=== PATIENT | male | born 1960 | race Caucasian/White ===

== ENCOUNTER 2017-02-03 12:06 | Inpatient (IN) | payer OTHER ==
[~2017-02-03] VITALS: Ht 182.8 cm; Wt 71.8 kg
[~2017-02-03 12:06] MED LIST: ATARAX,VISTARIL50 MG PO; LISINOPRIL5 MG PO; METHOCARBAMOL750 M1 PO; NATURE'S BLEND F1 MG PO; NICODERM C21 MG/24 H TD; THERA TABS1 TAB PO; VITAMIN B-11 TAB PO
[2017-02-03 12:24] LABS: BASO % 0.7 % (0.0-1.0); EOS % 0.4 % (1.0-4.0); HEMATOCRIT 42.2 % (42.0-52.0); HEMOGLOBIN 15.1 g/dl (14.0-18.0); LYMPH # 1.6 10*3/uL (1.3-4.4); LYMPH % 28.4 % (27.0-41.0); MEAN CELL VOLUME 96.3 fl (80.0-94.0); MEAN CORPUSCULAR HGB 34.5 pg (27.0-31.0); MEAN CORPUSCULAR HGB CONC 35.8 g/dl (33.0-37.0); MEAN PLATELET VOLUME 10.1 fl (9.6-12.3); MONO # 0.8 10*3/uL (0.1-1.0); MONO % 13.6 % (3.0-9.0); NEUT # 3.1 10*3/uL (2.3-7.9); NEUT % 56.7 % (47.0-73.0); PLATELET COUNT AUTOMATED 110 10*3/uL (130-400); RED BLOOD COUNT 4.38 10*6/uL (4.50-5.90); RED CELL DISTRI WIDTH 11.2 % (0-14.5); WHITE BLOOD COUNT 5.5 10*3/uL (4.8-10.8)
[2017-02-03 12:31] VITALS: BP 162/95
[2017-02-03 12:33] LABS: INTERNATIONAL NORM RATIO 0.9 (2.0-3.5); PROTHROMBIN TIME 9.3 SECONDS (9.0-12.4)
[2017-02-03 12:42] LABS: ALBUMIN 3.6 gm/dl (3.1-4.5); ALKALINE PHOSPHATASE 123 U/L (45-117); BILIRUBIN, TOTAL 0.6 mg/dl (0.2-1.0); BUN 4 mg/dl (7-24); CARBON DIOXIDE 26 mmol/L (21-32); CHLORIDE 102 mmol/L (98-107); EST GLOM FILT AFRICAN AMERICAN > 60 ml/min; GLUCOSE 113 mg/dL (65-99); MAGNESIUM 2.1 mg/dL (1.5-2.1); POTASSIUM 4.4 mmol/L (3.5-5.1); SGOT/AST 235 IU/L (3-35); SGPT/ALT 172 U/L (12-78); SODIUM 139 mmol/L (136-145); TOTAL PROTEIN 7.1 gm/dL (6.4-8.2)
[2017-02-03 12:48] LABS: TROPONIN I < 0.015 ng/ml (<0.045)
[2017-02-03 13:31] VITALS: BP 114/67
[2017-02-03 14:15] VITALS: BP 126/80
[2017-02-03] MEDS ORDERED: DILTIAZEM 24HR120 MG PO ×2 (14:28→14:51)
[2017-02-03] MEDS ORDERED: REMERON15 M2 PO ×2 (14:30→14:47)
[2017-02-03] MEDS ORDERED: VISTARIL50 MG PO (14:49)
[2017-02-03] MEDS ORDERED: ATROVENT H0.017 MG/A INH (14:51)
[2017-02-03 16:00] VITALS: BP 124/85
[2017-02-03 16:19] LABS: URINE AMPHETAMINES < 1000 (1000ng/ml); URINE BARBITURATES < 200 (200ng/ml); URINE COCAINE < 300 (300ng/ml)
[2017-02-03 16:40] LABS: BILIRUBIN NEGATIVE (NEGATIVE); BLOOD TRACE-LYSED (NEGATIVE); CLARITY CLEAR (CLEAR); COLOR YELLOW (YELLOW); GLUCOSE NEGATIVE (NEGATIVE); KETONE NEGATIVE (NEGATIVE); LEUKO ESTERASE NEGATIVE (NEGATIVE); NITRITE NEGATIVE (NEGATIVE); PROTEIN NEGATIVE (NEGATIVE); SPECIFIC GRAVITY <= 1.005 (1.005-1.030); UROBILINOGEN 0.2 E.U./dl (0.2-1.0)
[2017-02-03 16:52] LABS: BACTERIA 1+; EPITHELIAL CELLS 0-3; RBC 0-2 rbc/hpf (0-2); URINE REFLEX COMMENT NO (NO)
[2017-02-03 20:00] VITALS: BP 119/74
[2017-02-04] VITALS: BP 128/85
[2017-02-04 04:00] VITALS: BP 140/73
[2017-02-04 05:35] LABS: ALKALINE PHOSPHATASE 118 U/L (45-117); BILIRUBIN, TOTAL 1.1 mg/dl (0.2-1.0); BUN 6 mg/dl (7-24); CARBON DIOXIDE 28 mmol/L (21-32); CHLORIDE 106 mmol/L (98-107); CHOLESTEROL 182 mg/dL (<200); EST GLOM FILT AFRICAN AMERICAN > 60 ml/min; FREE T4 0.78 ng/dl (0.76-1.46); GLUCOSE 87 mg/dL (65-99); HDL CHOLESTEROL 120 mg/dl (40-60); LDL CHOLESTEROL 54 mg/dL (9-159); MAGNESIUM 1.7 mg/dL (1.5-2.1); PHOSPHOROUS 3.1 mg/dL (2.5-4.9); POTASSIUM 4.1 mmol/L (3.5-5.1); SGOT/AST 163 IU/L (3-35); SGPT/ALT 144 U/L (12-78); SODIUM 142 mmol/L (136-145); TOTAL PROTEIN 5.8 gm/dL (6.4-8.2); TRIGLYCERIDES 38 mg/dl (<150); VLDL CHOLESTEROL 8 mg/dL (6-40)
[2017-02-04 06:02] LABS: BASO % 0.5 % (0.0-1.0); EOS # 0.1 10*3/uL (0.0-0.4); EOS % 1.3 % (1.0-4.0); HEMATOCRIT 39.2 % (42.0-52.0); HEMOGLOBIN 13.4 g/dl (14.0-18.0); LYMPH # 1.2 10*3/uL (1.3-4.4); LYMPH % 20.8 % (27.0-41.0); MEAN CELL VOLUME 98.7 fl (80.0-94.0); MEAN CORPUSCULAR HGB 33.8 pg (27.0-31.0); MEAN CORPUSCULAR HGB CONC 34.2 g/dl (33.0-37.0); MEAN PLATELET VOLUME 11.2 fl (9.6-12.3); MONO # 0.6 10*3/uL (0.1-1.0); MONO % 9.7 % (3.0-9.0); NEUT % 67.4 % (47.0-73.0); PLATELET COUNT AUTOMATED 93 10*3/uL (130-400); RED BLOOD COUNT 3.97 10*6/uL (4.50-5.90); RED CELL DISTRI WIDTH 11.5 % (0-14.5)
[2017-02-04 06:24] LABS: INTERNATIONAL NORM RATIO 0.9 (2.0-3.5); PROTHROMBIN TIME 9.7 SECONDS (9.0-12.4)
[2017-02-04 06:58] LABS: HEMOGLOBIN A1c 5.1 % (4.8-5.6)
[2017-02-04 07:09] LABS: VITAMIN D, 25-HYDROXY 17.8 ng/mL (30-100)
[2017-02-04 07:10] LABS: FOLIC ACID 20.8 ng/mL (>5.38)
[2017-02-04 08:00] VITALS: BP 144/80
[2017-02-04 12:00] VITALS: BP 132/68
[2017-02-04 16:00] VITALS: BP 118/67
[2017-02-04 20:00] VITALS: BP 111/67
[2017-02-05] VITALS: BP 113/79
[2017-02-05 04:00] VITALS: BP 114/77
[2017-02-05 05:48] LABS: BASO % 0.6 % (0.0-1.0); EOS # 0.2 10*3/uL (0.0-0.4); EOS % 2.6 % (1.0-4.0); HEMATOCRIT 37.4 % (42.0-52.0); LYMPH # 1.8 10*3/uL (1.3-4.4); LYMPH % 27.4 % (27.0-41.0); MEAN CELL VOLUME 98.4 fl (80.0-94.0); MEAN CORPUSCULAR HGB 34.2 pg (27.0-31.0); MEAN CORPUSCULAR HGB CONC 34.8 g/dl (33.0-37.0); MEAN PLATELET VOLUME 11.5 fl (9.6-12.3); MONO # 0.8 10*3/uL (0.1-1.0); MONO % 12.2 % (3.0-9.0); NEUT # 3.7 10*3/uL (2.3-7.9); NEUT % 56.9 % (47.0-73.0); PLATELET COUNT AUTOMATED 78 10*3/uL (130-400); RED CELL DISTRI WIDTH 11.2 % (0-14.5); WHITE BLOOD COUNT 6.5 10*3/uL (4.8-10.8)
[2017-02-05 06:01] LABS: ALBUMIN 2.8 gm/dl (3.1-4.5); ALKALINE PHOSPHATASE 113 U/L (45-117); BILIRUBIN, TOTAL 1.2 mg/dl (0.2-1.0); BUN 7 mg/dl (7-24); CARBON DIOXIDE 28 mmol/L (21-32); CHLORIDE 104 mmol/L (98-107); EST GLOM FILT AFRICAN AMERICAN > 60 ml/min; GLUCOSE 91 mg/dL (65-99); POTASSIUM 3.6 mmol/L (3.5-5.1); SGOT/AST 80 IU/L (3-35); SGPT/ALT 99 U/L (12-78); SODIUM 140 mmol/L (136-145); TOTAL PROTEIN 5.6 gm/dL (6.4-8.2)
[2017-02-05 08:00] VITALS: BP 111/81
[2017-02-05 12:00] VITALS: BP 120/86
[2017-02-05 16:00] VITALS: BP 108/56
[2017-02-05 20:00] VITALS: BP 99/53
[2017-02-06] VITALS: BP 116/83
[2017-02-06 04:00] VITALS: BP 125/76
[2017-02-06 06:00] LABS: BASO % 0.3 % (0.0-1.0); EOS # 0.2 10*3/uL (0.0-0.4); EOS % 2.6 % (1.0-4.0); HEMATOCRIT 37.5 % (42.0-52.0); HEMOGLOBIN 12.9 g/dl (14.0-18.0); LYMPH # 1.8 10*3/uL (1.3-4.4); LYMPH % 29.8 % (27.0-41.0); MEAN CELL VOLUME 99.2 fl (80.0-94.0); MEAN CORPUSCULAR HGB 34.1 pg (27.0-31.0); MEAN CORPUSCULAR HGB CONC 34.4 g/dl (33.0-37.0); MEAN PLATELET VOLUME 11.8 fl (9.6-12.3); MONO # 0.8 10*3/uL (0.1-1.0); MONO % 13.6 % (3.0-9.0); NEUT # 3.3 10*3/uL (2.3-7.9); NEUT % 53.2 % (47.0-73.0); PLATELET COUNT AUTOMATED 85 10*3/uL (130-400); RED BLOOD COUNT 3.78 10*6/uL (4.50-5.90); RED CELL DISTRI WIDTH 11.2 % (0-14.5); WHITE BLOOD COUNT 6.2 10*3/uL (4.8-10.8)
[2017-02-06 06:27] LABS: ALBUMIN 2.9 gm/dl (3.1-4.5); BILIRUBIN, TOTAL 0.8 mg/dl (0.2-1.0); BUN 6 mg/dl (7-24); CARBON DIOXIDE 28 mmol/L (21-32); CHLORIDE 107 mmol/L (98-107); EST GLOM FILT AFRICAN AMERICAN > 60 ml/min; GLUCOSE 95 mg/dL (65-99); POTASSIUM 3.8 mmol/L (3.5-5.1); SGOT/AST 48 IU/L (3-35); SGPT/ALT 82 U/L (12-78); SODIUM 143 mmol/L (136-145); TOTAL PROTEIN 5.7 gm/dL (6.4-8.2)
[2017-02-06 06:28] LABS: ALKALINE PHOSPHATASE 106 U/L (45-117)
[2017-02-06 08:00] VITALS: BP 135/82
[2017-02-06 12:00] VITALS: BP 136/80
[2017-02-06 16:00] VITALS: BP 130/84
[2017-02-06 20:00] VITALS: BP 113/73
[2017-02-07] VITALS: BP 102/59
[2017-02-07 06:13] LABS: BASO % 0.4 % (0.0-1.0); EOS # 0.1 10*3/uL (0.0-0.4); EOS % 1.8 % (1.0-4.0); HEMATOCRIT 36.9 % (42.0-52.0); HEMOGLOBIN 12.5 g/dl (14.0-18.0); IG # 0.1 10*3/uL (0.0-0.1); LYMPH % 26.5 % (27.0-41.0); MEAN CELL VOLUME 99.7 fl (80.0-94.0); MEAN CORPUSCULAR HGB 33.8 pg (27.0-31.0); MEAN CORPUSCULAR HGB CONC 33.9 g/dl (33.0-37.0); MEAN PLATELET VOLUME 12.2 fl (9.6-12.3); MONO # 0.9 10*3/uL (0.1-1.0); MONO % 11.4 % (3.0-9.0); NEUT # 4.5 10*3/uL (2.3-7.9); NEUT % 59.2 % (47.0-73.0); PLATELET COUNT AUTOMATED 97 10*3/uL (130-400); RED CELL DISTRI WIDTH 11.3 % (0-14.5); WHITE BLOOD COUNT 7.6 10*3/uL (4.8-10.8)
[2017-02-07 06:42] LABS: ALBUMIN 2.6 gm/dl (3.1-4.5); ALKALINE PHOSPHATASE 113 U/L (45-117); BILIRUBIN, TOTAL 0.4 mg/dl (0.2-1.0); BUN 7 mg/dl (7-24); CARBON DIOXIDE 28 mmol/L (21-32); CHLORIDE 108 mmol/L (98-107); EST GLOM FILT AFRICAN AMERICAN > 60 ml/min; GLUCOSE 147 mg/dL (65-99); POTASSIUM 3.8 mmol/L (3.5-5.1); SGOT/AST 39 IU/L (3-35); SGPT/ALT 66 U/L (12-78); SODIUM 143 mmol/L (136-145); TOTAL PROTEIN 5.3 gm/dL (6.4-8.2)
[2017-02-07 08:00] VITALS: BP 114/60
[2017-02-07 12:00] VITALS: BP 128/96
[2017-02-07 16:00] VITALS: BP 115/72
[2017-02-07 20:00] VITALS: BP 126/83
[2017-02-08] VITALS: BP 126/73
[2017-02-08 08:00] VITALS: BP 132/80
[2017-02-08 12:00] VITALS: BP 136/72
[2017-02-08 16:00] VITALS: BP 114/81
[2017-02-08 20:00] VITALS: BP 120/72
[2017-02-09] VITALS: BP 128/79
[2017-02-09 08:00] VITALS: BP 122/76
[2017-02-09 12:00] VITALS: BP 120/67
[2017-02-09] MEDS ORDERED: LOPRESSOR25 MG PO (13:07)
[2017-02-09] MEDS ORDERED: LEXAPRO10 MG PO (13:07)
[2017-02-09] MEDS ORDERED: Mysoline50 MG PO (13:07)
[2017-02-09] MEDS ORDERED: LISINOPRIL5 MG PO (13:07)
[2017-02-09] MEDS ORDERED: D-1000 185 MG-11 TAB PO (13:07)
== END 2017-02-09 14:02 | disposition home or self-care (01) | DRG 896 ==
LOC: ED 12:06 → EDHOLD 13:24 → ICCU 13:24 → 4E 02-06 12:31
PROVIDERS: Internal Medicine; Internal Medicine Nephrology; Nurse Practitioner Family
DX: F10.239 Alcohol dependence with withdrawal, unspecified (principal); J18.9 Pneumonia, unspecified organism; F10.29 Alcohol dependence with unspecified alcohol-induced disorder; E44.0 Moderate protein-calorie malnutrition; D69.6 Thrombocytopenia, unspecified; R07.9 Chest pain, unspecified; F41.9 Anxiety disorder, unspecified; E78.5 Hyperlipidemia, unspecified; F10.229 Alcohol dependence with intoxication, unspecified; Y90.0 Blood alcohol level of less than 20 mg/100 ml; R74.0 Nonspecific elevation of levels of transaminase and lactic acid dehydrogenase [LDH]; I10 Essential (primary) hypertension; F17.200 Nicotine dependence, unspecified, uncomplicated; G25.0 Essential tremor; E55.9 Vitamin D deficiency, unspecified; F32.9 Major depressive disorder, single episode, unspecified; D53.9 Nutritional anemia, unspecified; Z79.899 Other long term (current) drug therapy; Z80.0 Family history of malignant neoplasm of digestive organs; Z71.6 Tobacco abuse counseling; Z68.21 Body mass index [BMI] 21.0-21.9, adult

== ENCOUNTER 2017-05-02 12:07 | Inpatient (IN) | payer OTHER ==
[~2017-05-02] VITALS: Ht 182.8 cm; Wt 67.3 kg
[~2017-05-02 12:07] MED LIST changes: +ATROVENT H0.017 MG/A INH; +D-1000 185 MG-11 TAB PO; +DILTIAZEM 24HR120 MG PO; +LEXAPRO10 MG PO; +LOPRESSOR25 MG PO; +Mysoline50 MG PO; +REMERON15 M2 PO; +VISTARIL50 MG PO
[2017-05-02 12:26] VITALS: BP 145/85
[2017-05-02 13:53] LABS: BASO # 0.1 10*3/uL (0.0-0.1); BASO % 0.9 % (0.0-1.0); EOS % 0.2 % (1.0-4.0); HEMOGLOBIN 15.6 g/dl (14.0-18.0); LYMPH # 1.5 10*3/uL (1.3-4.4); LYMPH % 26.4 % (27.0-41.0); MEAN CELL VOLUME 96.5 fl (80.0-94.0); MEAN CORPUSCULAR HGB 34.2 pg (27.0-31.0); MEAN CORPUSCULAR HGB CONC 35.5 g/dl (33.0-37.0); MEAN PLATELET VOLUME 9.9 fl (9.6-12.3); MONO # 0.6 10*3/uL (0.1-1.0); MONO % 11.1 % (3.0-9.0); NEUT # 3.5 10*3/uL (2.3-7.9); NEUT % 61.1 % (47.0-73.0); PLATELET COUNT AUTOMATED 133 10*3/uL (130-400); RED BLOOD COUNT 4.56 10*6/uL (4.50-5.90); RED CELL DISTRI WIDTH 11.2 % (0-14.5); WHITE BLOOD COUNT 5.8 10*3/uL (4.8-10.8)
[2017-05-02 14:07] LABS: ALBUMIN 3.6 gm/dl (3.1-4.5); ALKALINE PHOSPHATASE 95 U/L (45-117); BUN 5 mg/dl (7-24); CHLORIDE 102 mmol/L (98-107); MAGNESIUM 2.3 mg/dL (1.5-2.1); POTASSIUM 4.4 mmol/L (3.5-5.1); SGOT/AST 144 IU/L (3-35); SGPT/ALT 146 U/L (12-78); SODIUM 139 mmol/L (136-145); TOTAL PROTEIN 6.9 gm/dL (6.4-8.2)
[2017-05-02 14:09] LABS: BILIRUBIN NEGATIVE (NEGATIVE); BLOOD TRACE-INTACT (NEGATIVE); CLARITY SL CLOUDY (CLEAR); COLOR YELLOW (YELLOW); GLUCOSE NEGATIVE (NEGATIVE); KETONE NEGATIVE (NEGATIVE); LEUKO ESTERASE 3+ (NEGATIVE); NITRITE POSITIVE (NEGATIVE); PH 5.5 (5.0-9.0); UROBILINOGEN 0.2 E.U./dl (0.2-1.0)
--- NOTE | 2017-05-02 14:15 | NUR ---
57 year old MALE admitted to room # 506 for stabilization. Reports an addiction to ALCOHOL last used 10 hours prior to admission. Compliant with admission procedure. Patient denies any anxiety, but is unable to sit still, taps toes to floor continuously, looks about room, unable to focus eyes on nurse during interview. See assessment forms for additional information about patient status.
[2017-05-02 14:16] LABS: URINE AMPHETAMINES < 1000 (1000ng/ml); URINE BARBITURATES < 200 (200ng/ml); URINE BENZODIAZEPINES < 200 (200ng/ml); URINE CANNABINOIDS (THC) > 50 (50ng/ml); URINE COCAINE < 300 (300ng/ml); URINE METHADONE < 300 (300ng/ml); URINE OPIATES < 300 (300ng/ml)
[2017-05-02 14:17] LABS: URINE PHENCYCLIDINE < 25 (25ng/ml)
[2017-05-02 14:30] VITALS: BP 150/60
[2017-05-02 14:47] LABS: RBC 0-2 rbc/hpf (0-2); WBC TNTC wbc/hpf (0-5)
[2017-05-02 14:48] LABS: BACTERIA 4+; MUCOUS TRACE
[2017-05-02 16:00] VITALS: BP 146/78
--- NOTE | 2017-05-02 16:38 | NUR ---
MEDICATED WITH VISTARIL FOR ANXIETY, ROBAXIN FOR LEG CRAMPS AND BENTYL FOR STOMACH CRAMPS.
--- NOTE | 2017-05-02 18:48 | NUR ---
Patient resting. Responding to scheduled medications with fewer complaints of pain and anxiety.
[2017-05-02 20:00] VITALS: BP 131/72
--- NOTE | 2017-05-02 21:56 | NUR ---
PT STILL HAVING MARKEDLY VISIBLE TREMORS DESPITE HAVING PO ATIVAN, MEDICATED WITH IV ATIVAN PER PRN ORDER. WILL MONITOR FOR EFFECTIVENESS.
--- NOTE | 2017-05-02 22:44 | NUR ---
PT RESTING MORE COMFORTABLY, TREMORS HAVE NOTABLY DECREASED. IV ATIVAN EFFECTIVE.
[2017-05-03] VITALS: BP 129/61
[2017-05-03 04:00] VITALS: BP 122/76
--- NOTE | 2017-05-03 05:10 | NUR ---
DR REGAN UPDATED ON PT'S STATUS AND PT'S MARKEDLY VISIBLE TREMORS, PT IS ALERT & ORIENTED, PT IS ONLY ON SCHEDULED ATIVAN PO, NO LIBRIUM TAPER. STATES TO GIVE PT THE IV ATIVAN 2MG NOW AND HE WILL ORDER THE LIBRIUM TAPER.
--- NOTE | 2017-05-03 05:14 | NUR ---
MEDICATED WITH ATIVAN IV PER ORDER FOR SEVERE TREMORS. WILL MONITOR FOR EFFECTIVENESS.
--- NOTE | 2017-05-03 05:49 | NUR ---
SOME NOTED REDUCTION IN TREMORS AT THIS TIME. ATIVAN MILDLY EFFECTIVE. SCHEDULED LIBRIUM GIVEN AT THIS TIME.
[2017-05-03 07:01] LABS: BASO % 0.4 % (0.0-1.0); EOS # 0.1 10*3/uL (0.0-0.4); EOS % 0.7 % (1.0-4.0); HEMATOCRIT 42.1 % (42.0-52.0); LYMPH # 1.4 10*3/uL (1.3-4.4); LYMPH % 18.9 % (27.0-41.0); MEAN CELL VOLUME 97.7 fl (80.0-94.0); MEAN CORPUSCULAR HGB 34.8 pg (27.0-31.0); MEAN CORPUSCULAR HGB CONC 35.6 g/dl (33.0-37.0); MEAN PLATELET VOLUME 10.8 fl (9.6-12.3); MONO # 0.8 10*3/uL (0.1-1.0); MONO % 11.6 % (3.0-9.0); NEUT # 4.9 10*3/uL (2.3-7.9); PLATELET COUNT AUTOMATED 125 10*3/uL (130-400); RED BLOOD COUNT 4.31 10*6/uL (4.50-5.90); RED CELL DISTRI WIDTH 11.2 % (0-14.5); WHITE BLOOD COUNT 7.2 10*3/uL (4.8-10.8)
[2017-05-03 07:32] LABS: ALBUMIN 3.2 gm/dl (3.1-4.5); ALKALINE PHOSPHATASE 98 U/L (45-117); BUN 8 mg/dl (7-24); CHLORIDE 102 mmol/L (98-107); CHOLESTEROL 182 mg/dL (<200); CREATININE 0.63 mg/dL (0.70-1.30); FREE T4 0.91 ng/dl (0.76-1.46); HDL CHOLESTEROL 122 mg/dl (40-60); LDL CHOLESTEROL 50 mg/dL (9-159); MAGNESIUM 1.8 mg/dL (1.5-2.1); POTASSIUM 3.7 mmol/L (3.5-5.1); SGOT/AST 103 IU/L (3-35); SGPT/ALT 115 U/L (12-78); SODIUM 137 mmol/L (136-145); TOTAL PROTEIN 6.3 gm/dL (6.4-8.2); TRIGLYCERIDES 50 mg/dl (<150); VLDL CHOLESTEROL 10 mg/dL (6-40)
[2017-05-03 07:52] LABS: VITAMIN D, 25-HYDROXY 13.5 ng/mL (30-100)
--- NOTE | 2017-05-03 07:58 | NUR ---
Shift chart check completed.
[2017-05-03 08:00] VITALS: BP 136/96
[2017-05-03 12:00] VITALS: BP 126/80
--- NOTE | 2017-05-03 14:23 | NUR ---
PATIENT MEDICATED WITH PO IMMODIUM FOR DIARRHEA
--- NOTE | 2017-05-03 15:23 | NUR ---
PATIENT STATES MEDICATION EFFECTIVE
[2017-05-03 16:00] VITALS: BP 144/80
--- NOTE | 2017-05-03 16:27 | NUR ---
D/C PLANNING: HOTEL BREAKFAST ATTENDANT MADE ATTEMPT TO DISCUSS AFTER CARE PLAN WITH PATIENT WITH NO SUCCESS. PATIENT STATED THAT HE WAS NOT FEELING WELL TO DISCUSS AFTERCARE PLAN. HOTEL BREAKFAST ATTENDANT WILL MAKE ANOTHER ATTEMPT TOMORROW. ALLA VEGA B.A. INTAKE COORINATOR
--- NOTE | 2017-05-03 19:31 | NUR ---
0910 2MG IMODIUM GIVEN FOR DIARHEA. PT STATES HE COMMONLY HAS DIARHEA AFTER MEALS. REASSESSED APPROXIMATELY 0940 STATES HR FEELS BETTER.
[2017-05-03 20:00] VITALS: BP 117/72
--- NOTE | 2017-05-03 20:54 | NUR ---
PATIENT MEDICATED WITH IVP ATIVAN FOR TREMORS AND ANXIETY
--- NOTE | 2017-05-03 22:00 | NUR ---
PATIENT STATES MEDICATION EFFECTIVE
[2017-05-04] VITALS: BP 122/76
[2017-05-04 04:00] VITALS: BP 108/78
[2017-05-04 06:11] LABS: HEPATITIS B SURFACE AG Negative (Negative); HEPATITIS C VIRUS ANTIBODY <0.1 s/co (0.0-0.9)
[2017-05-04 08:00] VITALS: BP 105/61
--- NOTE | 2017-05-04 08:30 | NUR ---
PATIENT RESTING QUIETLY IN BED. ALERT AND ORIENTED X3. FLAT AFFECT. RESPIRATIONS EASY, REGULAR. POX 98% RA. PT DENIES ANY PAIN/DISCOMFORT AT THIS TIME. MILD TREMORS NOTED. PT DENIES THE NEED FOR ANY PRN MEDICATION FOR ANXIETY. WILL CONTINUE TO MONITOR. VSS. CALL LIGHT WITHIN REACH.
[2017-05-04 12:00] VITALS: BP 103/65
--- NOTE | 2017-05-04 14:19 | NUR ---
PATIENT UP AMBULATING IN THE HALLWAY.
--- NOTE | 2017-05-04 15:47 | NUR ---
D/C PLANNING: BONE CHAR OPERATOR [facility] [place] AND SPOKE WITH MACHINERY MOVER, LAWRENCE. SHE STATED THAT THE PATIENT'S PCP PUT IN FOR A CONSULT FOR HIS PATIENT TO GO [facility]. THE [facility] WILL CONTACT [facility] FOR AN UPDATE. ALLA VEGA B.A. BONE CHAR OPERATOR
[2017-05-04 16:00] VITALS: BP 105/61
--- NOTE | 2017-05-04 16:12 | NUR ---
D/C PLANNING: ELECTRICAL INSTRUMENTATION TECHNICIAN RECEIVED A CALL BACK FROM THE [facility] [place]. ELECTRICAL INSTRUMENTATION TECHNICIAN SPOKE WITH THE BACON SLICER, EMMANUELLE AT [phone]. SHE STATED THAT THE PATIENT WILL BE GOING INTO THEIR INPATIENT TREATMENT CENTER IN [place]. [facility] WILL CALL ELECTRICAL INSTRUMENTATION TECHNICIAN IN THE MORNING TO GIVE A DEFINITE APPOINTMENT TIME FOR PATIENT. ALLA VEGA B.A. ELECTRICAL INSTRUMENTATION TECHNICIAN.
[2017-05-04 20:00] VITALS: BP 95/71
[2017-05-05] VITALS: BP 98/70
--- NOTE | 2017-05-05 00:20 | NUR ---
PRN ATIVAN GIVEN FOR PT COMPLAINTS OF TREMORS. VISABLE TREMORS SEEN. CALL LIGHT WITHIN REACH, WILL MONITOR
--- NOTE | 2017-05-05 01:00 | NUR ---
PRN ATIVAN APPEARS EFFECTIVE, PT SLEEPING
[2017-05-05 08:00] VITALS: BP 143/83
--- NOTE | 2017-05-05 08:12 | NUR ---
Shift chart check completed.
[2017-05-05 12:00] VITALS: BP 116/65
--- NOTE | 2017-05-05 15:49 | NUR ---
PATIENT MEDICATED WITH IVP ATIVAN FOR TREMORS AND WITHDRAW SYMPTOMS
[2017-05-05 16:00] VITALS: BP 125/77
--- NOTE | 2017-05-05 16:49 | NUR ---
PATIENT STATES MEDICATION EFFECTIVE
--- NOTE | 2017-05-05 17:25 | NUR ---
WENT IN TO ASSESS PATIENT. HE WAS TRYING TO EAT DINNER AND WAS HAVING SEVERE TREMORS. I MEDICATED WITH PO VISTARIL.
--- NOTE | 2017-05-05 17:58 | NUR ---
ORDERED A STAT EKG. PATIENT HAD A 5 BEAT RUN OF VTACH. ALSO TRIED TO NOTIFY DR GOULD. WILL TRY AGAIN SHORTLY.
--- NOTE | 2017-05-05 18:25 | NUR ---
PATIENT STATES MEDICATION EFFECTIVE
--- NOTE | 2017-05-05 19:07 | NUR ---
DR OLIVER NOTIFIED ABOUT EKG
[2017-05-05 20:00] VITALS: BP 134/68
--- NOTE | 2017-05-05 22:29 | NUR ---
PRN TRAZADONE GIVEN FOR PT COMPLAINTS OF SLEEPLESSNES. CALL LIGHT WITHIN REACH, WILL MONITOR
--- NOTE | 2017-05-05 23:09 | NUR ---
2ND DOSE OF PRN TRAZADONE GIVEN FOR CONTINUED SLEEPLESSNESS. CALL LIGHT WITHIN REACH, WILL MONITOR
--- NOTE | 2017-05-05 23:30 | NUR ---
24 HR chart check completed.
[2017-05-06] VITALS: BP 121/67
--- NOTE | 2017-05-06 | NUR ---
PRN TRAZADONE APPEARS EFFECTIVE, PT SLEEPING
--- NOTE | 2017-05-06 01:24 | NUR ---
PRN ATIVAN PO GIVEN FOR PT CONTINUING TO HAVE TREMORS. CALL LIGHT WITHIN REACH, WILL MONITOR
--- NOTE | 2017-05-06 02:30 | NUR ---
PRN ATIVAN APPEARS EFFECTIVE, PT SLEEPING
[2017-05-06 08:43] VITALS: BP 130/89
--- NOTE | 2017-05-06 08:52 | NUR ---
PT GIVEN IV ATIVAN SLOWLY PER PRN ORDER FOR INCREASED TREMORS AND TACHYCARDIA. HR 120-140'S. DENIES ANY CHEST PAIN. PT COOPERATIVE WITH CARE. WILL MONITOR EFFECTIVENESS. CALL LIGHT WITHIN REACH.
--- NOTE | 2017-05-06 09:36 | NUR ---
IV ATIVAN EFFECTIVE AT THIS TIME. HR NOW RANGING BETWEEN 80-90'S. LESS VISIBLE TREMORS. WILL CONTINUE TO MONITOR.
--- NOTE | 2017-05-06 15:18 | NUR ---
IV ATIVAN GIVEN SLOWLY PER PRN ORDER FOR INCREASED TREMORS. WILL MONITOR EFFECTIVENESS.
--- NOTE | 2017-05-06 15:30 | NUR ---
PT GIVEN PO VISTARIL AND ROBAXIN FOR ANXIETY AND MUSCLE ACHES. WILL MONITOR EFFECTIVENESS.
[2017-05-06 16:00] VITALS: BP 115/70
--- NOTE | 2017-05-06 16:00 | NUR ---
IV ATIVAN EFFECTIVE PER PT. WILL CONTINUE TO MONITOR.
--- NOTE | 2017-05-06 16:56 | NUR ---
Patient resting. Responding to scheduled medications with fewer complaints of pain and anxiety.
[2017-05-06 20:00] VITALS: BP 124/77
--- NOTE | 2017-05-06 22:42 | NUR ---
AT 2230 PATIENT GIVEN TRAZADONE AND ROBAXIN PER REQUEST FOR TREMORS AND RELAX TO BE ABLE TO SLEEP. PATIENT WITH TREMORS OF THE ARMS AND HANDS.
[2017-05-07] VITALS: BP 121/75
--- NOTE | 2017-05-07 02:42 | NUR ---
PATIENT RESTING IN BED WITH EYES CLOSED. NO SIGNS OR SYMPTOMS OF DISTRESS NOTED. WILL CONTINUE TO MONITOR. CALL LIGHT IN REACH.
[2017-05-07 06:59] LABS: BASO % 0.1 % (0.0-1.0); HEMATOCRIT 40.5 % (42.0-52.0); HEMOGLOBIN 13.4 g/dl (14.0-18.0); LYMPH % 8.3 % (27.0-41.0); MEAN CELL VOLUME 104.1 fl (80.0-94.0); MEAN CORPUSCULAR HGB 34.4 pg (27.0-31.0); MEAN CORPUSCULAR HGB CONC 33.1 g/dl (33.0-37.0); MEAN PLATELET VOLUME 11.7 fl (9.6-12.3); MONO # 0.6 10*3/uL (0.1-1.0); MONO % 4.9 % (3.0-9.0); NEUT % 85.8 % (47.0-73.0); PLATELET COUNT AUTOMATED 134 10*3/uL (130-400); RED BLOOD COUNT 3.89 10*6/uL (4.50-5.90); RED CELL DISTRI WIDTH 11.5 % (0-14.5); WHITE BLOOD COUNT 11.6 10*3/uL (4.8-10.8)
[2017-05-07 07:29] LABS: CREATININE 0.74 mg/dL (0.70-1.30)
[2017-05-07 08:11] VITALS: BP 111/68
[2017-05-07 16:00] VITALS: BP 121/68
[2017-05-07 20:00] VITALS: BP 126/79
--- NOTE | 2017-05-07 21:18 | NUR ---
PT C/O WITHDRAWL SYMPTOMS, ADMINSTERED PRN MEDICATIONS, WILL MONITOR EFFECTS
--- NOTE | 2017-05-07 22:22 | NUR ---
PRN MEDICATION EFFECTVE AT THIS TIME, PT RESTING IN BED WITH EYES CLOSED RESPS EASY AND NONLABORED WITH NO S/S OF DISTRESS CALL LIGHT WITH IN REACH
[2017-05-08] VITALS: BP 134/74
--- NOTE | 2017-05-08 00:14 | NUR ---
PATIENT SLEEPING IN BED, AROUSES EASILY. PATIENT DOES NOT VOICE ANY COMPLAINTS/DENIES ANY NEW OR WORSENING SYMPTOMS. WILL CONTINUE TO MONITOR. CALL LIGHT LEFT IN REACH.
--- NOTE | 2017-05-08 04:07 | NUR ---
PATIENT SLEEPING IN BED AT THIS TIME. RESPIRATIONS EASY. NO S/S OF DISTRESS NOTED.
[2017-05-08 06:24] LABS: BASO % 0.1 % (0.0-1.0); HEMOGLOBIN 13.9 g/dl (14.0-18.0); LYMPH # 1.3 10*3/uL (1.3-4.4); LYMPH % 13.9 % (27.0-41.0); MEAN CELL VOLUME 101.2 fl (80.0-94.0); MEAN CORPUSCULAR HGB 33.5 pg (27.0-31.0); MEAN CORPUSCULAR HGB CONC 33.1 g/dl (33.0-37.0); MEAN PLATELET VOLUME 11.7 fl (9.6-12.3); MONO # 0.8 10*3/uL (0.1-1.0); MONO % 8.3 % (3.0-9.0); NEUT # 7.1 10*3/uL (2.3-7.9); NEUT % 76.3 % (47.0-73.0); PLATELET COUNT AUTOMATED 148 10*3/uL (130-400); RED BLOOD COUNT 4.15 10*6/uL (4.50-5.90); RED CELL DISTRI WIDTH 11.3 % (0-14.5); WHITE BLOOD COUNT 9.3 10*3/uL (4.8-10.8)
[2017-05-08 07:02] LABS: ALBUMIN 2.9 gm/dl (3.1-4.5); ALKALINE PHOSPHATASE 103 U/L (45-117); BUN 11 mg/dl (7-24); CHLORIDE 105 mmol/L (98-107); CREATININE 0.67 mg/dL (0.70-1.30); POTASSIUM 4.2 mmol/L (3.5-5.1); SGOT/AST 19 IU/L (3-35); SGPT/ALT 50 U/L (12-78); SODIUM 138 mmol/L (136-145)
[2017-05-08 08:00] VITALS: BP 120/78
[2017-05-08 12:00] VITALS: BP 120/82
[2017-05-08 16:00] VITALS: BP 138/78
[2017-05-08 20:00] VITALS: BP 129/89
--- NOTE | 2017-05-08 21:10 | NUR ---
NICOTINE PATCH APPLIED TO LEFT UPPER ARM FOR C/O SMOKING CRAVING. TRAZADONE GIVEN FOR C/O SLEEPLESSNESS
[2017-05-09] VITALS: BP 125/60
--- NOTE | 2017-05-09 03:42 | NUR ---
24 HR chart check completed.
--- NOTE | 2017-05-09 04:26 | NUR ---
PATIENT RESTING IN BED WITH NO S/S OF DISTRESS. BED IN LOWEST POSITOIN, CALL LIGHT IN REACH
[2017-05-09 08:00] VITALS: BP 110/82
--- NOTE | 2017-05-09 10:13 | NUR ---
HAMMERER SPOKE WITH [place] CANTEEN MANAGER. SHE STATED THAT SHE IS STILL WORKING ON GETTING PATIENT A BED AT [facility] FOR INPATIENT TREATMENT. HAMMERER SPOKE WITH PATIENT ABOUT ANOTHER OPTION. PATIENT IS INTERESTED IN GETTING THE VIVITROL SHOT. HAMMERER WILL MAKE REFERRAL TO [facility] IN [place] FOR PATIENT TO RECEIVE THE VIVITROL SHOT AND COUNSELING. PATIENT AGREES AND UNDERSTANDS HIS AFTERCARE PLAN. HAMMERER REMINDED PATIENT TO FOLLOW-UP WITH [facility] AND MAKE SURE THEY HAVE PATIENT'S UPDATED PHONE NUMBER. ALLA VEGA B.A. HAMMERER.
[2017-05-09 12:00] VITALS: BP 91/65
[2017-05-09] MEDS ORDERED: LEVAQUIN750 M1 PO (12:13)
[2017-05-09] MEDS ORDERED: PREDNISONE10 MG PO (12:14)
--- NOTE | 2017-05-09 12:50 | NUR ---
Discharge instructions reviewed with patient/family. Patient receptive and verbalizes understanding. Follow-up care arranged. Written instructions given to patient/family. MARIE HERBERT
== END 2017-05-09 12:50 | disposition home or self-care (01) | DRG 896 ==
LOC: ED 12:07 → 5E 13:42 → EDHOLD 13:42 → 5E 13:49
PROVIDERS: Emergency Medicine; Internal Medicine Hospice and Palliative Medicine; Registered Nurse; ADMIT Internal Medicine
DX: F10.239 Alcohol dependence with withdrawal, unspecified (principal); J18.9 Pneumonia, unspecified organism; E67.8 Other specified hyperalimentation; E44.0 Moderate protein-calorie malnutrition; J45.901 Unspecified asthma with (acute) exacerbation; N30.00 Acute cystitis without hematuria; F17.210 Nicotine dependence, cigarettes, uncomplicated; R74.0 Nonspecific elevation of levels of transaminase and lactic acid dehydrogenase [LDH]; I10 Essential (primary) hypertension; F41.9 Anxiety disorder, unspecified; E55.9 Vitamin D deficiency, unspecified; E78.5 Hyperlipidemia, unspecified; Z80.0 Family history of malignant neoplasm of digestive organs; Z79.899 Other long term (current) drug therapy; Z71.6 Tobacco abuse counseling; Z68.21 Body mass index [BMI] 21.0-21.9, adult